=== PATIENT | male | born 1960 | race Caucasian/White ===

== ENCOUNTER 2019-01-20 17:46 | Emergency (ER) | payer MEDICAID ==
[~2019-01-20] VITALS: Ht 180.3 cm; Wt 72.7 kg
[2019-01-20] MEDS ORDERED: HYDROCODONE/ACETAMINOPHEN 5-325 MG TABLET PO ONE (19:00)
[2019-01-20 19:42] VITALS: BP 134/72
== END 2019-01-20 19:43 | disposition home or self-care (01) ==
LOC: EMS 17:48
DX: K08.89 Other specified disorders of teeth and supporting structures (principal)